=== PATIENT | male | born 1960 | race Caucasian/White ===

== ENCOUNTER 2022-12-03 20:56 | Emergency (ER) | payer OTHER, SELFPAY ==
[2022-12-03 20:59] VITALS: BP 132/79; PULSE 60; RESP 16; TEMP 36.7; O2SAT 97; BMI 26.9
--- NOTE | 2022-12-03 21:27 | CT_ITS ---
The [address] [address] Patient Name: AVILA DEVLIN MRN: [id number] date: 1960 Sex: M Assigned Patient Location: ER Current Patient Location: ER Accession/Order Number: [id number] Exam Date: 12/03/2022 22:25 Report Date: 12/03/2022 23:25 At the request of: LEANDRO MATTSON Procedure: CT abdomen pelvis w con EXAM: CT abdomen pelvis w con HISTORY: post op infection COMPARISON: None. TECHNIQUE: Multiple axial images of the abdomen and pelvis are obtained following the administration of IV contrast. Coronal and sagittal reformatted sequences are submitted for review. FINDINGS: The lung bases appear clear. Heart size is normal. The liver, gallbladder, spleen, pancreas and bilateral adrenal glands appear unremarkable. Bilateral kidneys demonstrate normal size, morphology and contrast enhancement. There is no evidence for hydronephrosis bilaterally. The prostate gland measures approximately 3.3 cm and 3.4 cm in AP and transverse diameter, respectively. Mild irregular appearance of the posterior urinary bladder base is seen, which may be related to mass effect due to the underlying enlarged prostate gland. However, intrinsic urinary bladder disease cannot be excluded. Clinical correlation is recommended. Additionally, diffuse wall thickening of the urinary seen, suspicious for infectious/inflammatory process and possible cystitis. An 18 mm left anterior urinary bladder diverticulum is seen. Nonobstructive bowel pattern is seen. Normal-appearing appendix is visualized. No significant bowel wall thickening is seen. No significant free fluid or abnormal fluid collection is seen in the abdomen and pelvis Small fat-containing bilateral inguinal hernia is seen. Soft tissue thickening with skin thickening of the periumbilical soft tissues is seen. An approximately 2 cm rim-enhancing periumbilical fluid collection is seen, which may represent a postsurgical abscess. No acute osseous abnormality seen. IMPRESSION: Soft tissue thickening with skin thickening of the periumbilical soft tissues is seen. An approximately 2 cm rim-enhancing periumbilical fluid collection is seen, which may represent a postsurgical abscess. Mild irregular appearance of the posterior urinary bladder base is seen, which may be related to mass effect due to the underlying enlarged prostate gland. However, intrinsic urinary bladder disease cannot be excluded. Clinical correlation is recommended. Additionally, diffuse wall thickening of the urinary seen, suspicious for infectious/inflammatory process and possible cystitis. An 18 mm left anterior urinary bladder diverticulum is seen. Electronically authenticated by: JASMINA CLARK Date: 12/03/2022 23:25
--- NOTE | 2022-12-03 21:29 | ED_ITS ---
HPI - Wound/Laceration General Chief Complaint: Wound/Laceration Stated Complaint: Wound CHECK Time Seen by Provider: 12/03/22 21:27 Source: patient Mode of arrival: walk-in Limitations: no limitations History of Present Illness HPI narrative: s/p umbilical repair at [facility] 11/11/22. Now presents complaining of redness at the umbilicus. No fever. Mild pain. No drainage. Area of redness has increased over past 5 days. Related Data Home Medications Medication Instructions Recorded Confirmed No Known Home Medications 12/03/22 12/03/22 Allergies Allergy/AdvReac Type Severity Reaction Status Date / Time No Known Drug Allergies Allergy Verified 12/03/22 21:07 Review of Systems ROS Status of ROS 10 or more systems reviewed and unremarkable except as noted in history and below [facility] Social History Smoking status: Former smoker Exam Constitutional Vital Signs - 24 hr 12/03/22 20:59 Temperature 98.1 F Pulse Rate [Monitor] 60 Respiratory Rate 16 Blood Pressure [Left Arm] 132/79 H Pulse Oximetry 97 Oxygen Delivery Method Room Air Common normals: no apparent distress HENMT Common normals: normocephalic, head/scalp atraumatic and hearing grossly normal bilaterally Eye Common normals: PERRL, EOMs intact bilaterally and conjunctivae normal Neck & C-Spine Common normals: full ROM Chest Common normals: inspection of chest normal Respiratory Common normals: normal respiratory effort, no use of accessory muscles and clear to auscultation bilaterally Cardio Common normals: regular rate, regular rhythm, S1 normal heart sound and S2 normal heart sound GI Other: periumbilical erythema 4cm. focal tenderness at the umbilicus. no drainage Back & Pelvis Common normals: no CVA tenderness Extremity Common normals: normal to inspection, full ROM and no joint enlargement Neuro Common normals: oriented x3, moves all extremities, no focal motor deficits and no sensory deficits noted Psych Appearance: grossly normal Course Vital Signs Vital signs: Vital Signs Temperature 98.1 F 12/03/22 20:59 Pulse Rate 60 12/03/22 20:59 Respiratory Rate 16 12/03/22 20:59 Blood Pressure 132/79 H 12/03/22 20:59 Pulse Oximetry 97 12/03/22 20:59 Oxygen Delivery Method Room Air 12/03/22 20:59 Temperature 98.1 F 12/03/22 20:59 Pulse Rate 60 12/03/22 20:59 Respiratory Rate 16 12/03/22 20:59 Blood Pressure 132/79 H 12/03/22 20:59 Pulse Oximetry 97 12/03/22 20:59 Oxygen Delivery Method Room Air 12/03/22 20:59 MDM - Wound/Laceration MDM Narrative Medical decision making narrative: patient presents post surgery umbilicus last month at [facility]. area about umbilicus is erythematous and mildly tender. No fever. erythema spreading and this is what brought him in. Pain is mild . CT with soft tissue thickening of periumbilical soft tissues. approx 2cm periumbilical fluid which may represent post surgical abscess. Clinical suspicion is low for abscess. No fever and only mild pain. Patient given IV clindamycin for cellulitis and advised close follow up with his surgeon. He is to return if increasing pain or fever. patient does not have any urinary symptoms Lab Data Labs: Lab Results 12/03/22 Range/Units 21:37 WBC 9.5 (4.0-11.0) 10^3/uL RBC 4.60 L (4.70-6.10) 10^6/uL Hgb 14.9 (14.0-18.0) g/dL Hct 42.7 (42.0-54.0) % MCV 92.8 (80.0-94.0) fL MCH 32.4 (25.9-34.0) pg MCHC 34.9 (29.9-35.2) g/dL RDW 12.0 (11.0-15.0) % Plt Count 204 (150-450) 10^3/uL MPV 10.1 (9.5-13.5) fL Neut % (Auto) 59.5 (43.0-75.0) % Lymph % (Auto) 26.1 (20.5-60.0) % [place] % (Auto) 6.0 (1.7-12.0) % Eos % (Auto) 6.7 (0.9-7.0) % Baso % (Auto) 1.3 (0.2-2.0) % Neut # (Auto) 5.7 (1.4-6.5) 10^3/uL Lymph # (Auto) 2.5 (1.2-3.8) 10^3/uL [place] # (Auto) 0.6 (0.3-0.8) 10^3/uL Eos # (Auto) 0.6 (0.0-0.7) 10^3/uL Baso # (Auto) 0.1 (0.0-0.1) 10^3/uL Abs Immat Gran (auto) 0.04 H (0.00-0.03) 10^3/uL Imm/Tot Granulo (auto) 0.4 (0.0-0.5) % Sodium 140 (136-145) mmol/L Potassium 4.5 (3.5-5.1) mmol/L Chloride 102 (98-107) mmol/L Carbon Dioxide 26.5 (21.0-32.0) mmol/L Anion Gap 16.0 BUN 16.0 (7.0-18.0) mg/dL Creatinine 0.89 (0.70-1.30) mg/dL Est GFR ( Amer) >60 (>=60) Est GFR (Non-Af Amer) >60 (>=60) BUN/Creatinine Ratio 18.0 Glucose 86 (74-106) mg/dL Lactate 0.7 (0.4-2.0) mmol/L Calcium 8.9 (8.5-10.1) mg/dL Discharge Plan Discharge Chief Complaint: Wound/Laceration Clinical Impression: Cellulitis of periumbilical region Mode of Transportation: Private Vehicle Prescriptions / Home Meds: No Action No Known Home Medications Instructions: Cellulitis (ED) Stand Alone Forms: Portal Instructions Referrals: DARLENE GUNN [Primary Care Provider] - 1 week Follow Up Appointments: follow up with your doctor in next 2-3 days. Return if increasing pain, redness or fever
[2022-12-03 21:54] LABS: Basophils Absolute Auto 0.1 10^3/uL (0.0-0.1); Basophils Percent Auto 1.3 % (0.2-2.0); Eosinophils Absolute Auto 0.6 10^3/uL (0.0-0.7); Eosinophils Percent Auto 6.7 % (0.9-7.0); Hematocrit 42.7 % (42.0-54.0); Hemoglobin 14.9 g/dL (14.0-18.0); Immature Granulocytes Abs Auto 0.04 10^3/uL (0.00-0.03); Immature Granulocytes Pct Auto 0.4 % (0.0-0.5); Lymphocytes Absolute Auto 2.5 10^3/uL (1.2-3.8); Lymphocytes Percent Auto 26.1 % (20.5-60.0); Mean Corpuscular HGB Conc 34.9 g/dL (29.9-35.2); Mean Corpuscular Hemoglobin 32.4 pg (25.9-34.0); Mean Corpuscular Volume 92.8 fL (80.0-94.0); Mean Platelet Volume 10.1 fL (9.5-13.5); Monocytes Absolute Auto 0.6 10^3/uL (0.3-0.8); Neutrophils Absolute Auto 5.7 10^3/uL (1.4-6.5); Neutrophils Percent Auto 59.5 % (43.0-75.0); Platelet Count 204 10^3/uL (150-450); White Blood Count 9.5 10^3/uL (4.0-11.0)
[2022-12-03 22:03] LABS: Calcium 8.9 mg/dL (8.5-10.1); Carbon Dioxide 26.5 mmol/L (21.0-32.0); Chloride 102 mmol/L (98-107); Estimated GFR (African America >60 (>=60); Estimated GFR (Non-African Ame >60 (>=60); Glucose 86 mg/dL (74-106); Potassium 4.5 mmol/L (3.5-5.1); Sodium 140 mmol/L (136-145)
[2022-12-03 22:11] LABS: Lactate/Lactic Acid 0.7 mmol/L (0.4-2.0)
[2022-12-03] MEDS: 0.9 % SODIUM CHLORIDE 1,000 ML 999 ML IV (22:54)
[2022-12-03] MEDS: CLINDAMYCIN PHOSPHATE/D5W 900 MG/50 ML PIGGYBACK 100 MG IV (23:12)
[2022-12-04] MEDS: CLINDAMYCIN HCL 150 MG CAPSULE 300 MG PO (00:20)
[2022-12-04] MEDS: CLINDAMYCIN HCL 150 MG CAPSULE 900 MG PO (01:12)
== END 2022-12-04 01:30 | disposition home or self-care (01) ==
PROVIDERS: Emergency Provider Internal Medicine; PCP Family Medicine
DX: L03.316 Cellulitis of umbilicus (principal); Z98.890 Other specified postprocedural states; Z87.891 Personal history of nicotine dependence
CPT/HCPCS: 36415; 74177; 80048; 83605; 85025; 96365; 99285; Q9967

== ENCOUNTER 2023-01-14 17:45 | Emergency (ER) | payer OTHER, SELFPAY ==
[2023-01-14 17:48] VITALS: BP 124/71; PULSE 63; RESP 16; TEMP 36.7; O2SAT 97; BMI 26.9
--- NOTE | 2023-01-14 18:13 | CT_ITS ---
The [place] [id number] Patient Name: AVILA DEVLIN MRN: [id number] date: 1960 Sex: M Assigned Patient Location: ED.MAIN Current Patient Location: ER Accession/Order Number: [id number] Exam Date: 01/14/2023 19:30 Report Date: 01/14/2023 20:12 At the request of: LEONARD GURROLA Procedure: CT abdomen pelvis w con EXAM: CT abdomen pelvis w con HISTORY: right-sided abdominal pain COMPARISON: 12/03/2022 TECHNIQUE: CT abdomen of the and pelvis with intravenous contrast. Dose reduction techniques were achieved by using automated exposure control and/or adjustment of mA and/or kV according to patient size and/or use of iterative reconstruction technique. FINDINGS: TUBES AND IMPLANTS: None. LOWER CHEST: Unremarkable ABDOMEN and PELVIS ABDOMINAL WALL AND SOFT TISSUES: Persistent periumbilical induration without discrete fluid collection. BONES: No suspicious lesions. Multilevel degenerative changes of the spine. ARTERIES: Mild to moderate aortoiliac atherosclerosis without aneurysm VEINS: Unremarkable. LYMPH NODES: Unremarkable. PERITONEUM/ RETROPERITONEUM: Unremarkable. BOWEL: No obstruction APPENDIX: Unremarkable LIVER: No suspicious lesions. GALLBLADDER: Unremarkable. BILE DUCTS: Not dilated SPLEEN: Unremarkable. PANCREAS: Unremarkable. ADRENALS: Unremarkable. KIDNEYS/ URETERS: No left stones or hydronephrosis. Stable mild right hydronephrosis at the level of the UPJ without urinary tract stone identified. REPRODUCTIVE ORGANS: Mild prostatomegaly URINARY BLADDER: Diffuse wall thickening with anterior left bladder diverticulum measuring 1.[address]/CT abdomen pelvis w con IMPRESSION: 1. Diffuse wall thickening with anterior left bladder diverticulum measuring 1.5 centimeters. This is concerning for cystitis. 2. Mild prostatomegaly. 3. Stable mild right hydronephrosis at the level of the UPJ without urinary tract stone identified. 4. Persistent periumbilical induration without discrete fluid collection. Electronically authenticated by: VANESA MONTES DE OCA Date: 01/14/2023 20:12
--- NOTE | 2023-01-14 18:17 | ED_ITS ---
Documented by User: Ruth Joy 01/14/23 21:30 HPI - Abdominal Pain General Chief Complaint: Abdominal Pain Stated Complaint: ABDOMINAL PAIN Time Seen by Provider: 01/14/23 18:13 Source: patient Mode of arrival: walk-in Limitations: no limitations History of Present Illness HPI narrative: 62 year old male presents to the ED for right-sided abd pain. Onset was after umbilical hernia repair 11/11/22. He states his stools have been abnormal since the surgery. Denies fever, chills, N/V, urinary sx. He has daily bowel movements. Rates his pain 11/05. He has had no other abdominal surgeries. Related Data Home Medications Medication Instructions Recorded Confirmed clindamycin HCl 300 mg capsule 300 mg PO QID 12/04/22 12/04/22 (Cleocin HCl) Previous Rx's Medication Instructions Recorded dicyclomine 10 mg capsule 10 mg PO QID PRN abdominal pain 01/14/23 #14 caps Allergies Allergy/AdvReac Type Severity Reaction Status Date / Time No Known Drug Allergies Allergy Verified 12/03/22 21:07 Review of Systems ROS Constitutional Denies: fever or chills Ears, nose, mouth, and throat Denies: throat pain Respiratory Denies: shortness of breath or cough Gastrointestinal Reports: abdominal pain, change in bowel habits, change in stool character and mucus in stool; Denies: nausea, vomiting, diarrhea, constipation, painful bowel movements or rectal pain Genitourinary Denies: painful urination, urinary frequency or urinary urgency Musculoskeletal Denies: back pain Integumentary/Breast Denies: rash Neurological Denies: headache PFSH PFSH Social History Smoking status: Former smoker Exam Constitutional Vital Signs, click to edit/add: Last Vital Signs Temp 98.1 F 01/14/23 17:48 Pulse 63 01/14/23 17:48 Resp 16 01/14/23 17:48 BP 124/71 H 01/14/23 17:48 Pulse Ox 97 01/14/23 17:48 Common normals: no apparent distress and oriented x3 General appearance: cooperative; not in distress Eye Common normals: no scleral icterus Chest Chest: symmetrical chest wall rise Respiratory Effort & inspection: able to speak in complete sentences and symmetric chest movement Auscultation: clear to auscultation bilaterally Cardio Common normals: regular rate and regular rhythm GI Common normals: Normal to inspection, nondistended, normoactive bowel sounds present and soft to palpation Palpation: tender Details: RLQ and RUQ Neuro Common normals: oriented x3 Sensorium/orientation: awake and alert Gait (neuro): normal gait Course Vital Signs Vital signs: Vital Signs Temperature 98.1 F 01/14/23 17:48 Pulse Rate 63 01/14/23 17:48 Respiratory Rate 16 01/14/23 17:48 Blood Pressure 124/71 H 01/14/23 17:48 Pulse Oximetry 97 01/14/23 17:48 Temperature 98.1 F 01/14/23 17:48 Pulse Rate 63 01/14/23 17:48 Respiratory Rate 16 01/14/23 17:48 Blood Pressure 124/71 H 01/14/23 17:48 Pulse Oximetry 97 01/14/23 17:48 MDM - Abdominal Pain MDM Narrative Medical decision making narrative: CBC, CMP, lipase were unremarkable. CT scan findings were discussed with the patient; bladder diverticulum, stable hydronephrosis, mild prostatomegaly. A prescription was provided for bentyl for his abdominal discomfort. He was encouraged to follow up with a pcp and urologist for a recheck, further evaluation and treatment. Differential Diagnosis Differential diagnosis: Likely abdominal pain, acute appendicitis, calculus of kidney, constipation and small bowel obstruction Lab Data Attestation: I reviewed the patient's lab results. Labs: Lab Results 01/14/23 01/14/23 Range/Units 18:29 20:35 WBC 8.6 (4.0-11.0) 10^3/uL RBC 4.46 L (4.70-6.10) 10^6/uL Hgb 14.3 (14.0-18.0) g/dL Hct 40.4 L (42.0-54.0) % MCV 90.6 (80.0-94.0) fL MCH 32.1 (25.9-34.0) pg MCHC 35.4 H (29.9-35.2) g/dL RDW 11.6 (11.0-15.0) % Plt Count 232 (150-450) 10^3/uL MPV 8.8 L (9.5-13.5) fL Neut % (Auto) 58.1 (43.0-75.0) % Lymph % (Auto) 26.5 (20.5-60.0) % [place] % (Auto) 9.0 (1.7-12.0) % Eos % (Auto) 5.3 (0.9-7.0) % Baso % (Auto) 0.9 (0.2-2.0) % Neut # (Auto) 5.0 (1.4-6.5) 10^3/uL Lymph # (Auto) 2.3 (1.2-3.8) 10^3/uL [place] # (Auto) 0.8 (0.3-0.8) 10^3/uL Eos # (Auto) 0.5 (0.0-0.7) 10^3/uL Baso # (Auto) 0.1 (0.0-0.1) 10^3/uL Abs Immat Gran (auto) 0.02 (0.00-0.03) 10^3/uL Imm/Tot Granulo (auto) 0.2 (0.0-0.5) % Sodium 139 (136-145) mmol/L Potassium 4.1 (3.5-5.1) mmol/L Chloride 105 (98-107) mmol/L Carbon Dioxide 24.9 (21.0-32.0) mmol/L Anion Gap 13.2 BUN 18.0 (7.0-18.0) mg/dL Creatinine 0.95 (0.70-1.30) mg/dL Est GFR ( Amer) >60 (>=60) Est GFR (Non-Af Amer) >60 (>=60) BUN/Creatinine Ratio 18.9 Glucose 89 (74-106) mg/dL Calcium 8.7 (8.5-10.1) mg/dL Total Bilirubin 0.4 (0.2-1.0) mg/dL AST 16 (15-37) U/L ALT 25 (16-63) U/L Alkaline Phosphatase 69 (46-116) U/L Total Protein 7.8 (6.4-8.2) g/dL Albumin 4.2 (3.4-5.0) g/dL Globulin 3.6 g/dL Albumin/Globulin Ratio 1.2 Lipase 93.0 (73.0-393.0) U/L Urine Color Lt. yellow (YELLOW) Urine Clarity Clear (CLEAR) Urine pH 6.0 (5.0-9.0) Ur Specific [place] <=1.005 A (1.005-1.025) Urine Protein Negative (NEG/TRACE) mg/dL Urine Glucose (UA) Negative (NEGATIVE) mg/dL Urine Ketones Negative (NEGATIVE) mg/dL Urine Occult Blood Negative (NEGATIVE) Urine Nitrite Negative (NEGATIVE) Urine Bilirubin Negative (NEGATIVE) Urine Urobilinogen 0.2 (0.2-1.0) EU/dL Ur Leukocyte Esterase Negative (NEGATIVE) Urine RBC None seen (0-2) #/HPF Urine WBC None seen (NONE SEEN) #/HPF Ur Squamous Epith Cells Rare (NONE/RARE) #/LPF Urine Crystals None seen (None Seen) #/HPF Urine Bacteria None seen (NONE SEEN) #/HPF Urine Casts None seen (NONE SEEN) #/LPF Urine Mucus None seen (NONE SEEN) Ur Culture Indicated? No Imaging Data CT scan - abdomen: Radiologist's impression: Procedure:? CT abdomen pelvis w con ? EXAM: CT abdomen pelvis w con ? HISTORY: right-sided abdominal pain ? COMPARISON: 12/03/2022 ? TECHNIQUE: CT abdomen of the and pelvis with intravenous contrast. Dose reduction techniques were achieved by using automated exposure control and/or adjustment of mA and/or kV according to patient size and/or use of iterative reconstruction technique. ? FINDINGS: TUBES AND IMPLANTS: None. ? LOWER CHEST: ? Unremarkable ? ABDOMEN and PELVIS ? ABDOMINAL WALL AND SOFT TISSUES: Persistent periumbilical induration without discrete fluid collection. ? BONES: No suspicious lesions. Multilevel degenerative changes of the spine. ? ARTERIES: Mild to moderate aortoiliac atherosclerosis without aneurysm VEINS: Unremarkable. LYMPH NODES: Unremarkable. PERITONEUM/ RETROPERITONEUM: Unremarkable. BOWEL: No obstruction APPENDIX: Unremarkable ? LIVER: No suspicious lesions. GALLBLADDER: Unremarkable. BILE DUCTS: Not dilated SPLEEN: Unremarkable. PANCREAS: Unremarkable. ADRENALS: Unremarkable. KIDNEYS/ URETERS: No left stones or hydronephrosis. Stable mild right hydronephrosis at the level of the UPJ without urinary tract stone identified. REPRODUCTIVE ORGANS: Mild prostatomegaly URINARY BLADDER: Diffuse wall thickening with anterior left bladder diverticulum measuring 1.5 centimeters. ? CT/CT abdomen pelvis w con IMPRESSION: 1. Diffuse wall thickening with anterior left bladder diverticulum measuring 1.5 centimeters. This is concerning for cystitis. 2. Mild prostatomegaly. 3. Stable mild right hydronephrosis at the level of the UPJ without urinary tract stone identified. 4. Persistent periumbilical induration without discrete fluid collection. ? ? Electronically authenticated by: VANESATamra TAVON ? Date: 01/14/2023? 20:12 Discharge Plan Discharge Chief Complaint: Abdominal Pain Clinical Impression: Abdominal pain, Bladder diverticulum Patient Disposition: Home, Self-Care Time of Disposition Decision: 21:02 Mode of Transportation: Private Vehicle Prescriptions / Home Meds: New dicyclomine 10 mg capsule 10 mg PO QID PRN (Reason: abdominal pain) Qty: 14 0RF No Action clindamycin HCl [Cleocin HCl] 300 mg capsule 300 mg PO QID Instructions: Abdominal Pain (ED), Hydronephrosis (ED) Stand Alone Forms: Portal Instructions Referrals: DARLENE GUNN [Primary Care Provider] - 1 week Discharge Date/Time: 01/14/23 21:28 Documented by User: Ahmet Mckeon MD 01/16/23 15:32 HPI - Abdominal Pain General Chief Complaint: Abdominal Pain Stated Complaint: ABDOMINAL PAIN Time Seen by Provider: 01/14/23 18:13 Related Data Home Medications Medication Instructions Recorded Confirmed clindamycin HCl 300 mg capsule 300 mg PO QID 12/04/22 12/04/22 (Cleocin HCl) Previous Rx's Medication Instructions Recorded dicyclomine 10 mg capsule 10 mg PO QID PRN abdominal pain 01/14/23 #14 caps Allergies Allergy/AdvReac Type Severity Reaction Status Date / Time No Known Drug Allergies Allergy Verified 12/03/22 21:07 PFSH PFSH Social History Smoking status: Former smoker Exam Constitutional Vital Signs, click to edit/add: Last Vital Signs Temp 98.1 F 01/14/23 17:48 Pulse 63 01/14/23 17:48 Resp 16 01/14/23 17:48 BP 124/71 H 01/14/23 17:48 Pulse Ox 97 01/14/23 17:48 Course Vital Signs Vital signs: Vital Signs Temperature 98.1 F 01/14/23 17:48 Pulse Rate 63 01/14/23 17:48 Respiratory Rate 16 01/14/23 17:48 Blood Pressure 124/71 H 01/14/23 17:48 Pulse Oximetry 97 01/14/23 17:48 Temperature 98.1 F 01/14/23 17:48 Pulse Rate 63 01/14/23 17:48 Respiratory Rate 16 01/14/23 17:48 Blood Pressure 124/71 H 01/14/23 17:48 Pulse Oximetry 97 01/14/23 17:48 MDM - Abdominal Pain Lab Data Labs: Lab Results 01/14/23 01/14/23 Range/Units 18:29 20:35 WBC 8.6 (4.0-11.0) 10^3/uL RBC 4.46 L (4.70-6.10) 10^6/uL Hgb 14.3 (14.0-18.0) g/dL Hct 40.4 L (42.0-54.0) % MCV 90.6 (80.0-94.0) fL MCH 32.1 (25.9-34.0) pg MCHC 35.4 H (29.9-35.2) g/dL RDW 11.6 (11.0-15.0) % Plt Count 232 (150-450) 10^3/uL MPV 8.8 L (9.5-13.5) fL Neut % (Auto) 58.1 (43.0-75.0) % Lymph % (Auto) 26.5 (20.5-60.0) % [place] % (Auto) 9.0 (1.7-12.0) % Eos % (Auto) 5.3 (0.9-7.0) % Baso % (Auto) 0.9 (0.2-2.0) % Neut # (Auto) 5.0 (1.4-6.5) 10^3/uL Lymph # (Auto) 2.3 (1.2-3.8) 10^3/uL [place] # (Auto) 0.8 (0.3-0.8) 10^3/uL Eos # (Auto) 0.5 (0.0-0.7) 10^3/uL Baso # (Auto) 0.1 (0.0-0.1) 10^3/uL Abs Immat Gran (auto) 0.02 (0.00-0.03) 10^3/uL Imm/Tot Granulo (auto) 0.2 (0.0-0.5) % Sodium 139 (136-145) mmol/L Potassium 4.1 (3.5-5.1) mmol/L Chloride 105 (98-107) mmol/L Carbon Dioxide 24.9 (21.0-32.0) mmol/L Anion Gap 13.2 BUN 18.0 (7.0-18.0) mg/dL Creatinine 0.95 (0.70-1.30) mg/dL Est GFR ( Amer) >60 (>=60) Est GFR (Non-Af Amer) >60 (>=60) BUN/Creatinine Ratio 18.9 Glucose 89 (74-106) mg/dL Calcium 8.7 (8.5-10.1) mg/dL Total Bilirubin 0.4 (0.2-1.0) mg/dL AST 16 (15-37) U/L ALT 25 (16-63) U/L Alkaline Phosphatase 69 (46-116) U/L Total Protein 7.8 (6.4-8.2) g/dL Albumin 4.2 (3.4-5.0) g/dL Globulin 3.6 g/dL Albumin/Globulin Ratio 1.2 Lipase 93.0 (73.0-393.0) U/L Urine Color Lt. yellow (YELLOW) Urine Clarity Clear (CLEAR) Urine pH 6.0 (5.0-9.0) Ur Specific [place] <=1.005 A (1.005-1.025) Urine Protein Negative (NEG/TRACE) mg/dL Urine Glucose (UA) Negative (NEGATIVE) mg/dL Urine Ketones Negative (NEGATIVE) mg/dL Urine Occult Blood Negative (NEGATIVE) Urine Nitrite Negative (NEGATIVE) Urine Bilirubin Negative (NEGATIVE) Urine Urobilinogen 0.2 (0.2-1.0) EU/dL Ur Leukocyte Esterase Negative (NEGATIVE) Urine RBC None seen (0-2) #/HPF Urine WBC None seen (NONE SEEN) #/HPF Ur Squamous Epith Cells Rare (NONE/RARE) #/LPF Urine Crystals None seen (None Seen) #/HPF Urine Bacteria None seen (NONE SEEN) #/HPF Urine Casts None seen (NONE SEEN) #/LPF Urine Mucus None seen (NONE SEEN) Ur Culture Indicated? No Critical Care Time Critical Care Time Attestation: I, Dr Mckeon, have reviewed the above progress note and course of action in the ER; agree with the above. I have personally seen and evaluated this patient, gone over history and physical, and discussed disposition and treatment plan with the patient. Discharge Plan Discharge Chief Complaint: Abdominal Pain Clinical Impression: Abdominal pain, Bladder diverticulum Patient Disposition: Home, Self-Care Time of Disposition Decision: 21:02 Mode of Transportation: Private Vehicle Prescriptions / Home Meds: New dicyclomine 10 mg capsule 10 mg PO QID PRN (Reason: abdominal pain) Qty: 14 0RF No Action clindamycin HCl [Cleocin HCl] 300 mg capsule 300 mg PO QID Instructions: Abdominal Pain (ED), Hydronephrosis (ED) Stand Alone Forms: Portal Instructions Referrals: DARLENE GUNN [Primary Care Provider] - 1 week Discharge Date/Time: 01/14/23 21:28
[2023-01-14 18:41] LABS: Basophils Absolute Auto 0.1 10^3/uL (0.0-0.1); Basophils Percent Auto 0.9 % (0.2-2.0); Eosinophils Absolute Auto 0.5 10^3/uL (0.0-0.7); Eosinophils Percent Auto 5.3 % (0.9-7.0); Hematocrit 40.4 % (42.0-54.0); Hemoglobin 14.3 g/dL (14.0-18.0); Immature Granulocytes Abs Auto 0.02 10^3/uL (0.00-0.03); Immature Granulocytes Pct Auto 0.2 % (0.0-0.5); Lymphocytes Absolute Auto 2.3 10^3/uL (1.2-3.8); Lymphocytes Percent Auto 26.5 % (20.5-60.0); Mean Corpuscular HGB Conc 35.4 g/dL (29.9-35.2); Mean Corpuscular Hemoglobin 32.1 pg (25.9-34.0); Mean Corpuscular Volume 90.6 fL (80.0-94.0); Mean Platelet Volume 8.8 fL (9.5-13.5); Monocytes Absolute Auto 0.8 10^3/uL (0.3-0.8); Neutrophils Percent Auto 58.1 % (43.0-75.0); Platelet Count 232 10^3/uL (150-450); Red Blood Count 4.46 10^6/uL (4.70-6.10); Red Cell Distribution Width 11.6 % (11.0-15.0); White Blood Count 8.6 10^3/uL (4.0-11.0)
[2023-01-14 18:56] LABS: Alanine Aminotransferase 25 U/L (16-63); Albumin Globulin Ratio 1.2; Albumin Level 4.2 g/dL (3.4-5.0); Alkaline Phosphatase 69 U/L (46-116); Anion Gap 13.2; Aspartate Amino Transferase 16 U/L (15-37); BUN Creatinine Ratio 18.9; Bilirubin Total 0.4 mg/dL (0.2-1.0); Calcium 8.7 mg/dL (8.5-10.1); Carbon Dioxide 24.9 mmol/L (21.0-32.0); Chloride 105 mmol/L (98-107); Estimated GFR (African America >60 (>=60); Estimated GFR (Non-African Ame >60 (>=60); Globulin 3.6 g/dL; Glucose 89 mg/dL (74-106); Potassium 4.1 mmol/L (3.5-5.1); Sodium 139 mmol/L (136-145); Total Protein 7.8 g/dL (6.4-8.2)
[2023-01-14 20:45] LABS: Bilirubin Urine NEGATIVE (NEGATIVE); Blood Urine NEGATIVE (NEGATIVE); Clarity Urine CLEAR (CLEAR); Color Urine LT. YELLOW (YELLOW); Glucose Urine UA NEGATIVE (NEGATIVE); Ketones Urine NEGATIVE (NEGATIVE); Leukocyte Esterase Urine NEGATIVE (NEGATIVE); Nitrite Urine NEGATIVE (NEGATIVE); Protein Urine NEGATIVE (NEG/TRACE); Specific Gravity Urine <=1.005 (1.005-1.025); Urobilinogen Urine 0.2 EU/dL (0.2-1.0)
[2023-01-14 23:13] LABS: Bacteria Urine NONE SEEN #/HPF (NONE SEEN); Cast Seen? NONE SEEN #/LPF (NONE SEEN); Crystals Seen? None Seen #/HPF (None Seen); Mucus Urine NONE SEEN (NONE SEEN); RBC Urine NONE SEEN #/HPF (0-2); Squamous Epithelial Cell Urine RARE #/LPF (NONE/RARE); Urine Culture Indicated NO; WBC Urine NONE SEEN #/HPF (NONE SEEN)
== END 2023-01-14 21:28 | disposition home or self-care (01) ==
PROVIDERS: Nurse Practitioner Family; Emergency Provider Emergency Medicine; PCP Family Medicine
DX: R10.9 Unspecified abdominal pain (principal); N32.3 Diverticulum of bladder; Z87.891 Personal history of nicotine dependence
CPT/HCPCS: 36415; 74177; 80053; 81001; 83690; 85025; 99284; Q9967

== ENCOUNTER 2023-02-08 11:05 | Emergency (ER) | payer OTHER, SELFPAY ==
[2023-02-08 11:07] VITALS: BP 133/76; PULSE 89; RESP 18; TEMP 37.3; O2SAT 97; BMI 27.3
--- NOTE | 2023-02-08 11:32 | ED_ITS ---
HPI - Back Pain/Injury General Chief Complaint: Back Pain/Injury Stated Complaint: BACK/REAR/GROIN PAIN Time Seen by Provider: 02/08/23 11:13 Source: patient Mode of arrival: ambulance Limitations: no limitations History of Present Illness HPI Narrative: patient with history of sciatica presents with low back pain - worse on the left - that radiates into the left groin and down the left leg. No recent fall or in jury but he said that walking had become more painful because of the pain so he had been crawling on my hands and knees to get around . now he has some pain in the left knee as well. No bowel or bladder dysfunction. No weakness, paralysis or sensory loss in either extremity. Nothing taken at home for the pain. History of spinal stenosis. Also has plantar fasciitis which flared up about a month ago and I think that set off my back pain. My feet are fine now. His PCP is Dr Arzola although he did see Dr Salgado once when Dr Arzola was not available. Related Data Previous Rx's Medication Instructions Recorded methocarbamol 750 mg tablet 750 mg PO Q6H PRN pain #30 tabs 02/08/23 methylprednisolone 4 mg tablets in 4 mg PO DAILY #21 ea 02/08/23 a dose pack (Medrol (Deon)) nabumetone 750 mg tablet 750 mg PO BID #14 tabs 02/08/23 Allergies Allergy/AdvReac Type Severity Reaction Status Date / Time cetirizine Allergy Intermediate Verified 02/08/23 11:10 [facility] Social History Smoking status: Former smoker Exam Narrative Exam Narrative: General: Alert, no acute distress, patient resting comfortably Skin: warm, intact, no pallor noted Head: Normocephalic, atraumatic Eye: Normal conjunctiva Respiratory: No acute distress Abdomen: Normal bowel sounds, soft, nontender, no pulsatile or solid masses detected. No rebound, guarding, or rigidity noted. Back: inspection of the back shows no obvious deformity, no swelling, no ecchymosis, contusion, abrasion, swelling, erythema, fluctuance or induration. Tenderness noted to lumbar spine and left paralumbar soft tissue plus super left buttock. No rash. Straight leg raise on left is positive. Straight leg raise on right is negative. No CVA tenderness noted bilaterally. Musculoskeletal: No deformity noted to bilateral lower extremities. no cyanosis or mottling noted. normal pulses at DP and PT 2+ bilaterally and symmetrically. Normal 5/5 strength at ankles with dorsiflexion and plantar flexion. Normal sensation noted to both lower extremities. Neurological: AAOx4, normal sensory and motor observed. L5-S1 reflexes intact symmetrically. DTR 2+ at patellar bilaterally. Psychiatric: Cooperative and interactive. Constitutional Vital Signs, click to edit/add: Last Vital Signs Temp 99.2 F 02/08/23 11:07 Pulse 89 02/08/23 11:07 Resp 18 02/08/23 11:07 BP 133/76 02/08/23 11:07 Pulse Ox 97 02/08/23 11:07 O2 Del Method Room Air 02/08/23 11:07 Course Vital Signs Vital signs: Vital Signs Temperature 99.2 F 02/08/23 11:07 Pulse Rate 89 02/08/23 11:07 Respiratory Rate 18 02/08/23 11:07 Blood Pressure 133/76 02/08/23 11:07 Pulse Oximetry 97 02/08/23 11:07 Oxygen Delivery Method Room Air 02/08/23 11:07 Temperature 99.2 F 02/08/23 11:07 Pulse Rate 89 02/08/23 11:07 Respiratory Rate 18 02/08/23 11:07 Blood Pressure 133/76 02/08/23 11:07 Pulse Oximetry 97 02/08/23 11:07 Oxygen Delivery Method Room Air 02/08/23 11:07 MDM - Back Pain/Injury MDM Narrative Medical decision making narrative: patient with sciatica distribution of pain from the low back. History of spinal stenosis but has no bowel or bladder deficits, paralysis or sensory loss suggesting acute neurological emergency. No CVAT or urinary symptoms. No sign of renal colic. No AAA on exam. No fall or blunt trauma. Images not warranted at this time. Patient given IM Solumedrol and IM Toradol. Discharged home with prescriptions for Medrol dose pack, Relafen and Robaxin. PCP follow up recommended. Differential Diagnosis Differential diagnosis: Likely lumbar radiculopathy, sciatica, strain of lumbar region, renal colic, pyelonephritis, thoracic back pain and AAA Discharge Plan Discharge Chief Complaint: Back Pain/Injury Clinical Impression: Acute knee pain, Lumbar radiculopathy, Sciatica Patient Disposition: Home, Self-Care Time of Disposition Decision: 11:40 Prescriptions / Home Meds: New nabumetone 750 mg tablet 750 mg PO BID Qty: 14 0RF methocarbamol 750 mg tablet 750 mg PO Q6H PRN (Reason: pain) Qty: 30 0RF methylprednisolone [Medrol (Deon)] 4 mg tablets,dose pack 4 mg PO DAILY Qty: 21 0RF Rx Instructions: follow directions on packaging for daily dosing Instructions: Sciatica (ED), Lumbar Radiculopathy (ED), Knee Pain (ED) Stand Alone Forms: Portal Instructions Referrals: DARLENE ARZOLA [Primary Care Provider] - 1 week
[2023-02-08] MEDS: METHYLPREDNISOLONE SOD SUCC PF 125 MG/2 ML VIAL IM (11:40)
[2023-02-08] MEDS: KETOROLAC TROMETHAMINE 60 MG/2 ML VIAL IM (11:40)
== END 2023-02-08 12:12 | disposition home or self-care (01) ==
PROVIDERS: Emergency Provider Emergency Medicine; PCP Family Medicine
DX: M54.42 Lumbago with sciatica, left side (principal); M54.16 Radiculopathy, lumbar region; M25.562 Pain in left knee; Z87.891 Personal history of nicotine dependence
CPT/HCPCS: 96372; 99284; J2930

== ENCOUNTER 2023-11-17 13:27 | Outpatient (OUT) | payer OTHER, SELFPAY ==
--- NOTE | 2023-11-17 13:40 | NM_ITS ---
The [address] [address] Patient Name: AVILA DEVLIN MRN: [id number] date: 1960 Sex: M Assigned Patient Location: [place] Current Patient Location: [place] Accession/Order Number: [id number] Exam Date: 11/17/2023 14:00 Report Date: 11/18/2023 10:08 At the request of: JOSEFINA HIGH Procedure: NM renal flow w/wo pharm int EXAMINATION: NM renal flow w/wo pharm int HISTORY: HYDRONEPHROSIS COMPARISON: CT exam 01/14/2023 TECHNIQUE: After IV administration of Tc-99m MAG-3, sequential renal flow images were acquired followed by sequential static images. Quantitative analysis was performed of both kidneys. Subsequently, the patient was given Lasix IV for determination of renal washout. FINDINGS: ARTERIAL PERFUSION: Normal and symmetric. TIME TO PEAK (LEFT): 5 minutes (Normal-less than five minutes). TIME TO PEAK (RIGHT): 9.25 minutes (Normal-less than five minutes). PERCENT UPTAKE: Left 52 % : Right 48 % T 1/2 POST-LASIX (LEFT): 12.5 minutes. T 1/2 POST-LASIX (RIGHT): 5.3 minutes. (Normal < 10 min, equivocal 10-20 min, abnormal > 20 min.). BLADDER: Normal. OTHER: Planar imaging demonstrates moderate right hydronephrosis NM/NM renal flow w/wo pharm int IMPRESSION: Nonobstructive right hydronephrosis with normal washout following administration of Lasix Electronically authenticated by: CORNELIO FORTUNE Date: 11/18/2023 10:08
[2023-11-17] MEDS: FUROSEMIDE 40 MG/4 ML VIAL IVP (14:20)
== END 2023-11-17 13:28 | disposition home or self-care (01) ==
LOC: NM 13:27
PROVIDERS: PCP Family Medicine; Visit Provider Urology
DX: Q62.11 Congenital occlusion of ureteropelvic junction (principal)
CPT/HCPCS: 78709; A9562